=== PATIENT | female | born 1965 | race Caucasian/White ===

== ENCOUNTER 2017-05-07 13:25 | Emergency (ER) | payer BC, OTHER ==
[~2017-05-07] VITALS: Ht 162.6 cm; Wt 100.0 kg
[~2017-05-07 13:25] MED LIST: CETI1TAB39 PO; CHOL1TAB PO; FURO1TAB62 PO; IBUP400T20 PO; PROT40TA PO
[2017-05-07 13:27] VITALS: BP 157/80; PULSE 76; RESP 15; TEMP 98.8; O2SAT 97
--- NOTE | 2017-05-07 14:35 | PD ---
HPI Chief Complaint: ENT Complaint Time Seen by Provider: 14:35 Travel History International Travel<30 days: No Contact w/Intl Traveler<30days: No Traveled to known affect area: No History of Present Illness HPI 51-year-old female presents to the emergency Department with complaint of right ear pain and muffled hearing for 2 days after injuring her ear drum with a Q- tip. Says she had a Q-tip in her ear and lifted her arm up and jabbed the Q- tip further into her ear accidentally. Denies ear drainage. Denies fever, vomiting. Has not taken any medications or tried any treatments to alleviate her symptoms. Symptoms are mild in severity. No known aggravating or relieving factors. Describes as an earache. Has an appointment with ENT on Wednesday. No known allergies. Has no other medical complaints. No other modifying factors or associated signs and symptoms. PFSH Past Medical History ?: Not Tubal Ligation: Yes Past Surgical History Appendectomy: Yes Hysterectomy: Yes Thoracic Surgery: Yes (BREST REDUCTION ) Tonsillectomy: Yes Other Surgery: Yes (VAIN OBLATION ) Social History Alcohol Use: Yes (OCC) Tobacco Use: No Substance Use: No Allergies-Medications (Allergen,Severity, Reaction): Coded Allergies: No Known Allergies (Unverified , 07/06/16) Reported Meds & Prescriptions Reported Meds & Active Scripts Active Ofloxacin Otic Drops 0.3 % Drops 3 Drop RIGHT EAR DAILY 10 Days Amoxicillin 500 Mg Cap 500 Mg PO BID 10 Days Ibuprofen 400 Mg Tab 400 Mg PO Q6H PRN Reported Vitamelts Vitamin D (Cholecalciferol) 1,000 Unit Tab 1,000 Units PO DAILY Zyrtec Allergy (Cetirizine HCl) 10 Mg Tab 10 Mg PO DAILY Protonix (Pantoprazole Sodium) 40 Mg Tab 40 Mg PO DAILY Lasix (Furosemide) 20 Mg Tab 20 Mg PO DAILY Review of Systems Except as stated in HPI: all other systems reviewed are Neg Physical Exam Narrative GENERAL: Well-nourished, well-developed female patient, in no acute distress; afebrile, nontoxic-appearing SKIN: Warm and dry. No rash. HEAD: Atraumatic. Normocephalic. EYES: Pupils equal and round. No scleral icterus. No injection or drainage. ENT: Mucosa pink and moist. No erythema or exudates. No uvular edema. No uvular , palatal, or tonsillar deviation. Airway patent. EARS: Bilateral pinnae and external canals appear within normal limits. Right tympanic membrane is erythematous and a perforation is noted at the 6 to 9 o' clock position; without drainage. Left tympanic membrane without erythema, dullness or perforation. NECK: Trachea midline. No lymphadenopathy. CARDIOVASCULAR: Regular rate and rhythm. No murmur appreciated. RESPIRATORY: No accessory muscle use. GASTROINTESTINAL: Rounded. MUSCULOSKELETAL: No obvious deformities. No clubbing. No cyanosis. No edema. NEUROLOGICAL: Awake and alert. Oriented 3. No obvious cranial nerve deficits. Motor grossly within normal limits. Normal speech. Moves all extremities. 5/5 strength to all extremities. PSYCHIATRIC: Appropriate mood and affect; insight and judgment normal. Data Data Last Documented VS Vital Signs Date Time Temp Pulse Resp B/P (MAP) Pulse Ox O2 Delivery O2 Flow Rate FiO2 05/07/17 15:07 05/07/17 13:27 98.8 76 15 97 Orders Orders Ed Discharge Order (05/07/17 14:45) MDM Medical Decision Making Medical Screen Exam Complete: Yes Emergency Medical Condition: Yes Medical Record Reviewed: Yes Differential Diagnosis Perforation of tympanic membrane, otitis media, otitis externa, foreign body Narrative Course 51-year-old female with perforation of right tympanic membranes and right otitis media. Perforation caused by trauma to the tympanic membrane. Patient is afebrile and nontoxic-appearing. Denies fever, vomiting. There is no drainage from the ear. Patient has an appointment with ENT on Wednesday. Ofloxacin and amoxicillin prescribed for home. Instructed patient to follow up with primary care provider. Patient verbalizes understanding and agreement with treatment plan. Patient is medically cleared and stable for discharge. Discussed reasons to return to the emergency department. Patient agrees with treatment plan. The patients vital signs are stable and the patient is stable for outpatient follow-up and treatment. Patient discharged home, stable and in no acute distress. Diagnosis Primary Impression: Perforation of right tympanic membrane Additional Impression: Right otitis media Qualified Codes: H66.91 - Otitis media, unspecified, right ear Referrals: Ear / Nose / Throat Specialist Primary Care Physician Patient Instructions: General Instructions, Serous Otitis Media (ED) Additional Instructions: Take antibiotics as prescribed and complete full course Ibuprofen or Tylenol as directed and as needed to reduce pain and fever [id number] antihistamines or decongestants as directed and as needed for symptom management Avoid getting water in the ears Do not put anything in the ears; including Q-tips Follow-up with primary care provider Follow-up with ENT Return to the emergency department immediately with worsening of symptoms Med/Other Pt SpecificInfo: Prescription(s) given Scripts Ofloxacin Otic Drops (Ofloxacin Otic Drops) 0.3 % Drops 3 DROP RIGHT EAR DAILY for Infection for 10 Days, #1 BOTTLE 0 Refills Prov: Shannon Hameed 05/07/17 Amoxicillin (Amoxicillin) 500 Mg Cap 500 MG PO BID for Infection for 10 Days, #20 CAP 0 Refills Prov: Shannon Hameed 05/07/17 Disposition: 01 DISCHARGE HOME Condition: Stable Shannon Hameed May 07, 2017 14:35
[2017-05-07] MEDS ORDERED: AMOX500C PO (14:38)
[2017-05-07] MEDS ORDERED: OFLO0.3D9 RIGHT EAR (14:43)
== END 2017-05-07 15:08 | disposition home or self-care (01) ==
LOC: NEPK 13:25
DX: H72.91 Unspecified perforation of tympanic membrane, right ear (principal); H66.91 Otitis media, unspecified, right ear
CPT/HCPCS: 99283